=== PATIENT | male | born 1935 | race Caucasian/White ===

== ENCOUNTER 2017-02-04 11:42 | Emergency (ER) | payer MEDICARE ==
[2017-02-04] MEDS ORDERED: Hydrochlorothiazide TAB* 25 MG PO ONE (12:36)
[2017-02-04] MEDS ORDERED: Losartan TAB* 25 MG PO ONE (12:36)
[2017-02-04 13:37] VITALS: BP 175/103
--- NOTE | 2017-02-04 21:09 | ED ---
Ethan Watkins Billy, scribed for Beto Worthy MD on 02/04/17 at 1231 . Hypertension - HPI Summary HPI Summary: Patient is an 81 year-old male coming to [facility] for evaluation of high blood pressure. The patient takes medication for his chronic hypertension. However, he has been non-compliant with his medications; he states that for the last week , his has been altering his medications at home without the supervision of his primary care physician. - History of Current Complaint Chief Complaint: EDHypertension Stated Complaint: HIGH BP Time Seen by Provider: 02/04/17 12:02 Hx Obtained From: Patient Onset/Duration: Started Days Ago Timing: Constant Aggravating Factor(s): Nothing Alleviating Factor(s): Nothing Associated Signs & Symptoms: Negative - Allergies/Home Medications Allergies/Adverse Reactions: Allergies Allergy/AdvReac Type Severity Reaction Status Date / Time No Known Allergies Allergy Verified 01/28/13 08:59 PMH/Surg Hx/FS Hx/Imm Hx Cardiovascular History: Reports: Hx Hypertension - CONTROL WITH MEDS History: Reports: Other Problems/Disorders - BLADDER CALCULI, BENIGN PROSTATE HYPERTROPHY Sensory History: Reports: Hx Contacts or Glasses - GLASSES Denies: Hx Hearing Aid Opthamlomology History: Reports: Hx Contacts or Glasses - GLASSES Neurological History: Reports: Other Neuro Impairments/Disorders - HISTORY OF [place], summer-NO PROBLEMS NOW - Surgical History Surgery Procedure, Year, and Place: 2002 APPENDECTOMY, [facility] [place]. BLADDER STONES EXTRACTION, [facility] [place]. 2007 BILATERAL CATARACT EXTRACTION, [facility] [place] Hx Anesthesia Reactions: Yes - 2002 DIFFICULTY WAKING UP, Infectious Disease History: No Infectious Disease History: Reports: Hx Hepatitis - HEPATITIS C YEARS AGO Denies: Traveled Outside the [place] in Last 30 Days - Family History Family History: His mother at 86 and his father at 91. - Social History Alcohol Use: None Substance Use Type: Reports: None Smoking Status (MU): Never Smoked Tobacco Review of Systems Negative: Fever Cardiovascular: Other - hypertension All Other Systems Reviewed And Are Negative: Yes Physical Exam - Summary Physical Exam Summary: VITAL SIGNS: Reviewed. GENERAL: Patient is a well-developed and nourished male who is lying comfortable in the stretcher. Patient is not in any acute respiratory distress. HEAD AND FACE: No signs of trauma. No ecchymosis, hematomas or skull depressions. No sinus tenderness. EYES: PERRLA, EOMI x 2, No injected conjunctiva, no nystagmus. EARS: Hearing grossly intact. Ear canals and tympanic membranes are within normal limits. MOUTH: Oropharynx within normal limits. NECK: Supple, trachea is midline, no adenopathy, no JVD, no carotid bruit, no c- spine tenderness, neck with full ROM. CHEST: Symmetric, no tenderness at palpation LUNGS: Clear to auscultation bilaterally. No wheezing or crackles. CVS: Regular rate and rhythm, S1 and S2 present, no murmurs or gallops appreciated. ABDOMEN: Soft, non-tender. No signs of distention. No rebound no guarding, and no masses palpated. Bowel sounds are normal. EXTREMITIES: FROM in all major joints, no edema, no cyanosis or clubbing. NEURO: Alert and oriented x 3. No acute neurological deficits. Speech is normal and follows commands. SKIN: Dry and warm Triage Information Reviewed: Yes Vital Signs On Initial Exam: Initial Vitals Temp Pulse Resp BP Pulse Ox 98.7 F 65 20 173/77 98 02/04/17 11:43 02/04/17 11:43 02/04/17 11:43 02/04/17 11:43 02/04/17 11:43 Vital Signs Reviewed: Yes Diagnostics - Vital Signs Vital Signs Temp Pulse Resp BP Pulse Ox 02/04/17 12:09 170/106 02/04/17 11:45 97.9 F 69 20 173/77 98 02/04/17 11:43 98.7 F 65 20 173/77 98 - Laboratory Lab Statement: Any lab studies that have been ordered have been reviewed, and results considered in the medical decision making process. Re-Evaluation - Re-Evaluation First Eval Re-Evaluation Time: 13:22 Hypertension Course/Dx - Course Assessment/Plan: Patient is an 81 year-old male coming to [facility] for evaluation of high blood pressure. The patient takes medication for his chronic hypertension. However, he has been non-compliant with his medications; he states that for the last week, his has been altering his medications at home without the supervision of his primary care physician. Therefore, at this point, I discussed the case with a nurse from Dr. Khoury office and informed them that the patient will be seeing him tomorrow to address this issue. The patient was given his normal medication here with improvement to blood pressure. He denies any complaints such as LING, dizziness, SOB, or CP. Therefore , I believe this is just a matter of controlling his chronic BP. The patients arrived to the ED, and I also spoke to the and instructed her that the patient should be adhering to his medications and not any other medications. She will go with the patient to his PCP appointment tomorrow. He is hemodynamically stable, A&Ox3. - Diagnoses Provider Diagnoses: Uncontrolled hypertension Discharge - Discharge Plan Condition: Stable Disposition: HOME Patient Education Materials: Hypertension (ED) Referrals: Rolando Rodrigez MD [Primary Care Provider] - The documentation as recorded by the Ethan trejo Billy accurately reflects the service I personally performed and the decisions made by me, Beto Worthy MD.
== END 2017-02-04 14:06 | disposition home or self-care (01) ==
LOC: ED 11:42
DX: I10 Essential (primary) hypertension (principal); Z91.19 Patient's noncompliance with other medical treatment and regimen
CPT/HCPCS: 99283; A9270-GY

== ENCOUNTER 2019-02-05 11:25 | Emergency (ER) | payer MEDICARE ==
[2019-02-05 11:41] VITALS: BP 141/79
--- NOTE | 2019-02-05 11:41 | UC ---
Skin Complaint HPI - HPI Summary HPI Summary: 85 y/o female presents to urgent care c/o a tick on his right thigh this morning. He attempted to remove it, but he thinks something is left in there. Pt denies Hx of tick bites in the past. Pt states mild irrigation when he removed tick w/ tweezers this morning. he applied triple antibiotic oint around it. Pain is 1/10. Pt denies fever, LING, joint pain, SOB, chest pain, abdominal pain, N/V/d. - History of Current Complaint Time Seen by Provider: 02/05/19 11:37 Stated Complaint: TICK BITE Hx Obtained From: Patient Onset/Duration: Sudden Onset, Lasting Days - 1 days, Resolved - Pt removed tick this morning Skin Exposure Onset/Duration: Days Ago - 1 day Timing: Constant Onset Severity: Mild Current Severity: Mild Pain Intensity: 1 Pain Scale Used: 0-10 Numeric Location: Discrete - RT upper thigh Character: Redness Aggravating Factor(s): Touch Alleviating Factor(s): Other - Triple antibiotic Associated Signs & Symptoms: Positive: Rash - Rt thigh tick bite. Negative: Fever, Chills Related History: Possible Reaction to: Insect - tick - Allergy/Home Medications Allergies/Adverse Reactions: Allergies Allergy/AdvReac Type Severity Reaction Status Date / Time No Known Allergies Allergy Verified 02/05/19 11:41 Home Medications: Home Medications Cholecalciferol TAB* [Vitamin D TAB*] 1,000 unit PO DAILY 02/05/19 [History Confirmed 02/05/19] Cod Liver Oil 1 cap PO DAILY 02/05/19 [History Confirmed 02/05/19] Doxazosin TAB* [Cardura TAB*] 4 mg PO BEDTIME 02/05/19 [History Confirmed ] Finasteride TAB* [Proscar TAB*] 5 mg PO DAILY 02/05/19 [History Confirmed ] Hydrochlorothiazide TAB* [Hydrodiuril TAB*] 25 mg PO DAILY 02/05/19 [History Confirmed 02/05/19] Losartan Potassium 100 mg PO DAILY 02/05/19 [History Confirmed 02/05/19] Solifenacin Succinate [Vesicare] 5 mg PO DAILY 02/05/19 [History Confirmed 02/05] PMH/Surg Hx/FS Hx/Imm Hx Previously Healthy: Yes Other Endocrine History: Vitamin D deficiency Cardiovascular History: Hypertension Other GI/ History: BPH - Surgical History Surgical History: Yes Surgery Procedure, Year, and Place: 2002 APPEN[place]OMY, [facility] [place]. [place]AD[place] ST[place]TRACTION, [facility] [place]. 2008 BILATERAL CATARACT [place]TRACTION, [facility] [place] - Family History Known Family History: Positive: Hypertension Family History: His mother at 86 and his father at 91. - Social History Occupation: Retired Lives: With Family Alcohol Use: Rare Substance Use Type: None Smoking Status (MU): Never Smoked Tobacco Review of Systems All Other Systems Reviewed And Are Negative: Yes Constitutional: Positive: Negative Skin: Positive: Other - Rt thigh tick bite Eyes: Positive: Negative ENT: Positive: Negative Respiratory: Positive: Negative Cardiovascular: Positive: Negative Gastrointestinal: Positive: Negative Genitourinary: Positive: Negative Motor: Positive: Negative Neurovascular: Positive: Negative Musculoskeletal: Positive: Negative Neurological: Positive: Negative Psychological: Positive: Negative Is Patient Immunocompromised?: No Physical Exam - Summary Physical Exam Summary: Vital Signs Reviewed: Yes General: well developed, well nourished obese male sitting in the examining table w/o any apparent distress. Eyes: Positive: Conjunctiva Clear - PERRLA, EOMI ENT: Positive: Normal ENT inspection, Hearing grossly normal, Pharynx normal, TMs normal Neck: Positive: Supple, Nontender, No Lymphadenopathy Respiratory: Positive: Chest nontender, Lungs clear, Normal breath sounds Cardiovascular: Positive: RRR, No Murmur, Pulses Normal Abdomen Description: Positive: Nontender, No Organomegaly, Soft. Negative: CVA Tenderness (R), CVA Tenderness (L) Bowel Sounds: Positive: Present Musculoskeletal: Positive: Strength Intact, ROM Intact, No Edema Neurological Exam: Normal Psychological Exam: Normal Skin: Positive: rashes - Proximal medial aspect of Rt thigh with tick bite with surrounding erythema, non tender to palpation. tick no longer present, no swelling or drainage observed. Triage Information Reviewed: Yes Vital Signs: Initial Vital Signs Temp 98.8 F 02/05/19 11:38 Pulse 95 02/05/19 11:38 Resp 18 02/05/19 11:38 BP 141/79 02/05/19 11:38 Pulse Ox 94 02/05/19 11:38 Course/Dx - Course Course Of Treatment: 85 y/o female presents to urgent care c/o a tick on his right thigh this morning. He attempted to remove it, but he thinks something is left in there. Pt denies Hx of tick bites in the past. Pt states mild irrigation when he removed tick w/ tweezers this morning. he applied triple antibiotic oint around it. Pain is 1/10. Pt denies fever, LING, joint pain, SOB, chest pain, abdominal pain, N/V/d. Hx obtained. Pt w/ Proximal medial aspect of Rt thigh with tick bite with surrounding erythema, non tender to palpation. tick no longer present , no swelling or drainage observed on examination. Area around tick bite cleaned w/ alcohol swabs and tick remnants no longer presents. Antibiotic prophylaxis with Doxycycline given to the patient to prevent lyme Disease.. Pt tolerated well medication. Pt advised to observe the area for the development or Erythema Migrans for upto 30 days following exposure. Advised if he develops fever or erythema Migrans to return to the clinic or PCP Dr Short for further treatment . Pt's BP is elevated today advised to decrease salt in diet, monitor BP and f/u with PCP for further management. D/C instructions explained. Pt understood and agreed with plan of care. - Differential Diagnoses - Skin Complaint Differential Diagnoses: Abscess, Local Allergic Reaction, MRSA, Tick Born Illness, Other - insect bite, bee sting - Diagnoses Provider Diagnosis: Tick bite of right thigh, Uncontrolled hypertension Discharge - Sign-Out/Discharge Documenting (check all that apply): Patient Departure - d/c home All imaging exams completed and their final reports reviewed: No Studies - Discharge Plan Condition: Stable Disposition: HOME Patient Education Materials: Tick Bite (ED) Referrals: Rolando Rodrigez MD [Primary Care Provider] - 2 Weeks Ina DUMONT,Terence James [Medical Doctor] - If Needed Additional Instructions: 1- Please observe the area for the development or Erythema Migrans for upto 30 days following exposure. Components of the tick saliva can cause transient erythema that should not be confused with Erythema Migrans. If you develop the bull's eye rash, fever, joint pains please return to the urgent care or f/u with your PCP for further management. Continue applying Triple antibiotic oint BID around tick bite 2-Antibiotic prophylaxis with Doxycycline was given to you today to prevent lyme Disease. Lyme serology can be drawn in 2 weeks with your PCP or Dr Short to r/o Lyme disease since there is probability of negative results at early exposure. 3- Your BP is elevated today. please decrease salt in your diet, monitor BP and if it continues to be elevated please f/u with your PCP for further management. - Billing Disposition and Condition Condition: STABLE Disposition: Home
[2019-02-05] MEDS ORDERED: DOXYcycline CAP(*) 100 MG PO ONE (12:02)
== END 2019-02-05 12:19 | disposition home or self-care (01) ==
LOC: UCEAST 11:25
DX: S70.361A Insect bite (nonvenomous), right thigh, initial encounter (principal); I10 Essential (primary) hypertension; N40.0 Benign prostatic hyperplasia without lower urinary tract symptoms; Z79.899 Other long term (current) drug therapy; W57.XXXA Bitten or stung by nonvenomous insect and other nonvenomous arthropods, initial encounter; Y92.9 Unspecified place or not applicable
CPT/HCPCS: 99212; A9270-GY; G0463

== ENCOUNTER 2021-11-21 07:55 | Inpatient (IN) ==
[2021-11-21] MEDS ORDERED: NS 0.9% 1000 ml BAG 1,000 ML IV ONE (08:40)
[2021-11-21] MEDS ORDERED: Labetalol IV 5 MG/ML 20 ml VIAL IV PUSH ONE (09:11)
[2021-11-21 09:15] LABS: ABS Eosinophils 0.2 10^3/ul (0-0.6); ABS Lymphocytes 1.1 10^3/ul (1.0-4.8); ABS Monocytes 0.4 10^3/ul (0-0.8); ABS Neutrophils 4.3 10^3/ul (1.5-7.7); Eosinophil % 2.6 %; Hematocrit 49 % (42-52); Hemoglobin 16.4 g/dL (14.0-18.0); Lymphocyte % 17.8 %; Mean Corpuscular HGB Conc 34 g/dL (31-36); Mean Corpuscular Hemoglobin 29 pg (27-31); Mean Corpuscular Volume 86 fL (80-94); Mean Platelet Volume 8.3 fL (7.4-10.4); Platelet Count 180 10^3/uL (150-450); Red Blood Count 5.64 10^6 /uL (4.18-5.48); Red Cell Distribution Width 15 % (10-15)
[2021-11-21 09:52] LABS: Activated Partial Thrombo Time 34.7 seconds (26.0-38.0); INR 1.2 (0.86-1.15)
[2021-11-21 10:10] LABS: Albumin 4.8 g/dL (3.2-5.2); Albumin/Globulin Ratio 1.5 (1-3); Calcium 10.2 mg/dL (8.6-10.3); Globulin 3.3 g/dL (2-4); HDL Cholesterol 27.9 mg/dL; Potassium 4.1 mmol/L (3.5-5.0); Total Bilirubin 0.8 mg/dL (0.2-1.0); Total Protein 8.1 g/dL (6.4-8.9); eGFR CKD-EPI 65.5 (>60)
[2021-11-21] MEDS ORDERED: Iohexol 350 (CONTRAST) 500 ML MDV IV ONE (10:23)
[2021-11-21 10:56] LABS: High Sensitivity Troponin 1 Hr 13 pg/mL (<20)
[2021-11-21 12:05] LABS: TSH Ultra Thyroid Stim Horm 1.31 mcIU/mL (0.34-5.60)
[2021-11-21] MEDS: Heparin 5000 UNITS/ML 1 mL VIAL SUBCUT SCH ×2 (15:36→21:00)
[2021-11-22 06:14] LABS: ABS Eosinophils 0.3 10^3/ul (0-0.6); ABS Lymphocytes 1.5 10^3/ul (1.0-4.8); ABS Monocytes 0.5 10^3/ul (0-0.8); ABS Neutrophils 3.2 10^3/ul (1.5-7.7); Hematocrit 42 % (42-52); Hemoglobin 14.3 g/dL (14.0-18.0); Lymphocyte % 27.4 %; Mean Corpuscular HGB Conc 34 g/dL (31-36); Mean Corpuscular Hemoglobin 29 pg (27-31); Mean Corpuscular Volume 86 fL (80-94); Mean Platelet Volume 8.6 fL (7.4-10.4); Platelet Count 162 10^3/uL (150-450); Red Blood Count 4.86 10^6 /uL (4.18-5.48); Red Cell Distribution Width 15 % (10-15); White Blood Count 5.6 10^3/uL (3.5-10.8)
[2021-11-22] MEDS: Heparin 5000 UNITS/ML 1 mL VIAL SUBCUT SCH ×3 (06:17→20:30)
[2021-11-22 06:38] LABS: Calcium 9.2 mg/dL (8.6-10.3); Potassium 4.2 mmol/L (3.5-5.0); eGFR CKD-EPI 55.7 (>60)
[2021-11-22] MEDS: Cholecalciferol (VIT D3) 1,000 unit TAB PO SCH (08:42)
[2021-11-22] MEDS ORDERED: CYANOCOBALAMIN 100 MCG PO SCH (09:00)
[2021-11-22] MEDS ORDERED: NFT: Coenzyme Q10 CAP (NF) 100MG PO SCH (09:00)
[2021-11-22 23:56] LABS: Urine Appearance Cloudy; Urine Bilirubin Negative (Negative); Urine Blood 3+ (Negative); Urine Color Yellow; Urine Glucose Negative (Negative); Urine Ketones Negative (Negative); Urine Nitrite Positive (Negative); Urine Protein Negative (Negative); Urine Specific Gravity 1.011 (1.002-1.030); Urine Urobilinogen Negative (Negative)
[2021-11-23 00:12] LABS: Urine Bacteria 1+ (Absent); Urine Red Blood Cell 3+(>10/hpf) (Absent); Urine White Blood Cell 3+(>20/hpf) (Absent)
[2021-11-23 06:23] LABS: Hematocrit 43 % (42-52); Hemoglobin 14.4 g/dL (14.0-18.0); Mean Corpuscular HGB Conc 34 g/dL (31-36); Mean Corpuscular Hemoglobin 29 pg (27-31); Mean Corpuscular Volume 86 fL (80-94); Mean Platelet Volume 8.8 fL (7.4-10.4); Platelet Count 157 10^3/uL (150-450); Red Blood Count 4.96 10^6 /uL (4.18-5.48); Red Cell Distribution Width 15 % (10-15); White Blood Count 5.1 10^3/uL (3.5-10.8)
[2021-11-23] MEDS: Heparin 5000 UNITS/ML 1 mL VIAL SUBCUT SCH ×3 (06:26→21:07)
[2021-11-23 06:45] LABS: Calcium 9.2 mg/dL (8.6-10.3); Potassium 4.3 mmol/L (3.5-5.0); eGFR CKD-EPI 62.8 (>60)
[2021-11-23] MEDS: Cholecalciferol (VIT D3) 1,000 unit TAB PO SCH (08:32)
[2021-11-24] MEDS: Heparin 5000 UNITS/ML 1 mL VIAL SUBCUT SCH (05:28)
[2021-11-24] MEDS: Cholecalciferol (VIT D3) 1,000 unit TAB PO SCH (09:48)
[2021-11-24 14:04] VITALS: BP 147/86
== END 2021-11-24 13:50 | DRG 65 ==
LOC: ED 07:55 → EDHOLD 11:35 → SUATTDRO 11:35 → MEDTELE 13:38
PROVIDERS: ADMIT Internal Medicine; ATTEND Pediatrics

== ENCOUNTER 2021-11-24 12:44 | Inpatient (IN) ==
[2021-11-24] MEDS ORDERED: Magnesium Hydroxide LIQ 30 ML UDC PO PRN (17:51)
[2021-11-24] MEDS ORDERED: Senna TAB 8.6 mg TAB PO PRN (17:51)
[2021-11-24] MEDS: Heparin 5000 UNITS/ML 1 mL VIAL SUBCUT SCH (21:24)
[2021-11-25] MEDS: Heparin 5000 UNITS/ML 1 mL VIAL SUBCUT SCH ×3 (04:51→20:42)
[2021-11-25 06:35] LABS: ABS Eosinophils 0.5 10^3/ul (0-0.6); ABS Lymphocytes 1.4 10^3/ul (1.0-4.8); ABS Monocytes 0.5 10^3/ul (0-0.8); ABS Neutrophils 2.7 10^3/ul (1.5-7.7); Hematocrit 41 % (42-52); Lymphocyte % 27.7 %; Mean Corpuscular HGB Conc 34 g/dL (31-36); Mean Corpuscular Hemoglobin 30 pg (27-31); Mean Corpuscular Volume 86 fL (80-94); Mean Platelet Volume 8.4 fL (7.4-10.4); Platelet Count 152 10^3/uL (150-450); Red Blood Count 4.73 10^6 /uL (4.18-5.48); Red Cell Distribution Width 15 % (10-15)
[2021-11-25 07:11] LABS: Albumin 3.9 g/dL (3.2-5.2); Albumin/Globulin Ratio 1.5 (1-3); Calcium 9.2 mg/dL (8.6-10.3); Globulin 2.6 g/dL (2-4); Potassium 4.2 mmol/L (3.5-5.0); Total Bilirubin 0.6 mg/dL (0.2-1.0); Total Protein 6.5 g/dL (6.4-8.9); eGFR CKD-EPI 57.3 (>60)
[2021-11-26] MEDS: Heparin 5000 UNITS/ML 1 mL VIAL SUBCUT SCH ×3 (05:10→22:33)
[2021-11-27] MEDS: Heparin 5000 UNITS/ML 1 mL VIAL SUBCUT SCH ×3 (04:59→22:05)
[2021-11-28] MEDS: Heparin 5000 UNITS/ML 1 mL VIAL SUBCUT SCH ×3 (05:25→22:12)
[2021-11-29] MEDS: Heparin 5000 UNITS/ML 1 mL VIAL SUBCUT SCH ×3 (05:30→21:22)
[2021-11-30] MEDS: Heparin 5000 UNITS/ML 1 mL VIAL SUBCUT SCH ×3 (06:00→21:33)
[2021-12-01] MEDS: Heparin 5000 UNITS/ML 1 mL VIAL SUBCUT SCH ×3 (05:11→21:26)
[2021-12-02] MEDS: Heparin 5000 UNITS/ML 1 mL VIAL SUBCUT SCH ×3 (05:54→21:38)
[2021-12-02 06:07] LABS: ABS Basophils 0.1 10^3/ul (0-0.2); ABS Eosinophils 0.4 10^3/ul (0-0.6); ABS Lymphocytes 1.7 10^3/ul (1.0-4.8); ABS Monocytes 0.5 10^3/ul (0-0.8); ABS Neutrophils 3.1 10^3/ul (1.5-7.7); Eosinophil % 7.1 %; Hematocrit 42 % (42-52); Hemoglobin 14.2 g/dL (14.0-18.0); Lymphocyte % 29.7 %; Mean Corpuscular HGB Conc 34 g/dL (31-36); Mean Corpuscular Hemoglobin 30 pg (27-31); Mean Corpuscular Volume 87 fL (80-94); Mean Platelet Volume 8.8 fL (7.4-10.4); Platelet Count 148 10^3/uL (150-450); Red Cell Distribution Width 15 % (10-15); White Blood Count 5.8 10^3/uL (3.5-10.8)
[2021-12-02 06:56] LABS: Albumin/Globulin Ratio 1.4 (1-3); Calcium 9.3 mg/dL (8.6-10.3); Globulin 2.8 g/dL (2-4); Potassium 4.8 mmol/L (3.5-5.0); Total Bilirubin 0.5 mg/dL (0.2-1.0); Total Protein 6.8 g/dL (6.4-8.9); eGFR CKD-EPI 50.9 (>60)
[2021-12-03] MEDS: Heparin 5000 UNITS/ML 1 mL VIAL SUBCUT SCH ×3 (05:48→21:39)
[2021-12-04] MEDS: Heparin 5000 UNITS/ML 1 mL VIAL SUBCUT SCH ×3 (05:06→21:46)
[2021-12-05] MEDS: Heparin 5000 UNITS/ML 1 mL VIAL SUBCUT SCH ×3 (06:16→21:30)
[2021-12-06] MEDS: Heparin 5000 UNITS/ML 1 mL VIAL SUBCUT SCH ×3 (05:14→20:47)
[2021-12-07] MEDS: Heparin 5000 UNITS/ML 1 mL VIAL SUBCUT SCH ×3 (05:07→21:08)
[2021-12-08] MEDS: Heparin 5000 UNITS/ML 1 mL VIAL SUBCUT SCH ×3 (05:46→20:47)
[2021-12-09] MEDS: Heparin 5000 UNITS/ML 1 mL VIAL SUBCUT SCH ×3 (06:01→21:42)
[2021-12-09 06:06] LABS: ABS Basophils 0.1 10^3/ul (0-0.2); ABS Eosinophils 0.4 10^3/ul (0-0.6); ABS Lymphocytes 1.2 10^3/ul (1.0-4.8); ABS Monocytes 0.5 10^3/ul (0-0.8); ABS Neutrophils 3.9 10^3/ul (1.5-7.7); Eosinophil % 6.1 %; Hematocrit 43 % (42-52); Hemoglobin 14.7 g/dL (14.0-18.0); Lymphocyte % 20.2 %; Mean Corpuscular HGB Conc 34 g/dL (31-36); Mean Corpuscular Hemoglobin 30 pg (27-31); Mean Corpuscular Volume 88 fL (80-94); Mean Platelet Volume 8.5 fL (7.4-10.4); Platelet Count 125 10^3/uL (150-450); Red Blood Count 4.92 10^6 /uL (4.18-5.48); Red Cell Distribution Width 15 % (10-15); White Blood Count 6.1 10^3/uL (3.5-10.8)
[2021-12-09 07:45] LABS: Albumin 4.2 g/dL (3.2-5.2); Calcium 9.6 mg/dL (8.6-10.3); Potassium 4.7 mmol/L (3.5-5.0); Total Bilirubin 0.7 mg/dL (0.2-1.0)
[2021-12-09 07:51] LABS: Albumin/Globulin Ratio 1.5 (1-3); Globulin 2.8 g/dL (2-4); eGFR CKD-EPI 56.2 (>60)
[2021-12-10] MEDS: Heparin 5000 UNITS/ML 1 mL VIAL SUBCUT SCH (04:52)
[2021-12-10 04:53] VITALS: BP 152/87
== END 2021-12-10 12:15 | disposition home health service (06) | DRG 57 ==
LOC: PMRU 13:51
PROVIDERS: ADMIT Physical Medicine & Rehabilitation; ATTEND Physical Medicine & Rehabilitation